=== PATIENT | female | born 1980 | race Caucasian/White ===

== ENCOUNTER 2019-09-11 17:23 | Emergency (ER) | payer OTHER ==
[~2019-09-11] VITALS: Ht 170.2 cm; Wt 113.4 kg
[~2019-09-11 17:23] MED LIST: ACYCLOVIR 400400 M1 PO; AUGMENTIN 875875 M1 PO; BENAZEPRIL HCL10 MG PO; CELEXA40 MG PO; CLEOCIN HCL300 MG PO; CYMBALTA20 MG PO; FLUCONAZOLE 10100 MG PO; HYDROCODON-ACE1 EAC5 PO; MEDROLDOSEPACK PO; OXCARBAZEPINE300 M1 PO; TRAMADOL 50 MG50 MG PO; TRILEPTAL150 MG PO; ZOFRAN ODT4 MG PO
[2019-09-11] MEDS ORDERED: TAMIFLU75 MG PO (18:22)
[2019-09-11 18:58] VITALS: BP 137/87
== END 2019-09-11 19:00 | disposition home or self-care (01) ==
LOC: ER 17:23
DX: J11.1 Influenza due to unidentified influenza virus with other respiratory manifestations (principal); I10 Essential (primary) hypertension; E03.9 Hypothyroidism, unspecified; Z88.1 Allergy status to other antibiotic agents